=== PATIENT | female | born 1980 | race Asian ===

== ENCOUNTER → 2024-08-23 | Outpatient (CLI) | payer BC, SELFPAY ==
[2024-08-24 11:19] LABS: BVAG Candida Negative (Negative); Bacterial Vaginosis Markers Negative (Negative); Candida glabrata Negative (Negative); Candida krusei PCR Negative (Negative); Trichomonas Negative (Negative)
== END | disposition home or self-care (01) ==
LOC: SLDO 14:42
PROVIDERS: Referring Provider Physician Assistant Medical; Visit Provider Physician Assistant Medical
DX: A59.01 Trichomonal vulvovaginitis (principal); B37.89 Other sites of candidiasis; N76.0 Acute vaginitis
CPT/HCPCS: 81514; 87077; 87086; 87186